=== PATIENT | male | born 1945 | race Caucasian/White ===

== ENCOUNTER 2019-11-28 20:14 | Emergency (ER) | payer MEDICARE, SELFPAY ==
[2019-11-28 20:16] VITALS: BP 194/85; PULSE 73; RESP 17; TEMP 37.4; O2SAT 99; BMI 25.0
--- NOTE | 2019-11-28 20:33 | ED_ITS ---
HPI - Eye Problem General: Chief complaint: Eye Problems Stated complaint: VISION CHANGES POST SURGERY Time Seen by Provider: 11/28/19 20:24 History of Present Illness: HPI Narrative: Mr. Andrew is a nice 74-year-old male who comes in complaining of increased hearing out of both eyes. His tearing is more so in the right side than the left side. He states he had tear duct surgery last month and the month before on the left eye and then prior to that the right eye by Dr. Tejada. The increased tearing has been going on for the past 2 to 3 days. He has not noticed any difficulty with his vision but today he had 2 episodes of bright circular flashes of light lasting just a second out of his right eye. He denies any headache, vomiting, nausea or other complaint. Associated symptoms: Denies fever(s), headache(s), nausea, neck pain or vomiting Review of Systems General: Reports: other (negative unless marked) Const: Denies: fever, chills, body aches, fatigue, malaise or diaphoresis Eyes: Reports: eye discharge, eye redness, increased production of tears and seeing flashes; Denies: blurry vision, blind spots, photophobia, eye discomfort, yellow eyes, dry eyes, floaters or decreased night vision ENMT: Denies: throat pain, painful swallowing, hoarseness, ear pain, ear discharge, Change in hearing or nasal discharge Card: Denies: chest pain, palpitations, irregular heart rhythm, syncope, pre- syncope, shortness of breath on exertion or shortness of breath when lying down Resp: Denies: shortness of breath, productive cough, non-productive cough, wheezing, coughing up blood or chest congestion GI: Denies: abdominal pain, nausea, vomiting, vomiting blood, coffee grounds in vomit, diarrhea, constipation, cramping, blood in stool or black tarry stool : Denies: flank pain, difficulty urinating, painful urination, urinary frequency, urinary urgency, decreased urine ouput, urinary incontinence or blood in urine Musc: Denies: neck pain, back pain, extremity pain, extremity swelling, joint pain, joint swelling, joint warmth or joint stiffness Skin/Breast: Denies: rash, skin tenderness or yellow skin Neuro: Denies: headache, numbness in extremities, weakness in extremities, changes in sensation, lack of coordination, difficulty walking, dizziness, vertigo or confusion Endo: Denies: excessive thirst, tired all the time, cold intolerance, excessive sweating, flushing or hot flashes Isauro/Lymph: Denies: easy bruising, easy bleeding, petechiae or enlarged lymph nodes All/Imm: Denies: hives, throat swelling, tongue swelling, facial swelling or acute wheezing PFSH ED PFSH: Medical History Diabetes mellitus Hypertension Social History (Updated 11/28/19 @ 21:18 by Marta Harris) Smoking and tobacco status: never smoked Alcohol intake: current Alcohol intake frequency: holidays/special occasions only Physical Exam Const: COMMON NORMALS: no apparent distress, oriented x3, no limitations, healthy appearing and well nourished EXAM LIMITATIONS: no altered mental status GENERAL APPEARANCE: cooperative, well kempt and well developed ORIENTATION/CONSCIOUSNESS: Yes awake HENMT: COMMON NORMALS: normocephalic, head/scalp atraumatic, hearing grossly normal bilaterally, external ears normal, EAC's normal, external nose normal and moist oral mucous membranes HEAD & SCALP: normal to inspection, normocephalic and atraumatic FACE & SINUS: normal facial exam and face symmetric NOSE: external nose normal, nares normal and other (No temporal artery nodularity or tenderness.) EXTERNAL EAR: Yes external ears normal EXTERNAL AUDITORY CANAL: EAC's normal MOUTH: oral and palatal mucosa normal and tongue normal Eye: COMMON NORMALS: EOMs intact bilaterally, no scleral icterus, no papilledema, normal visual duron by confrontation and fundi normal bilaterally GENERAL EYE: no decreased light reflex VISUAL ACUITY: Yes other (Visual ac uity 20/50 both eyes, 20/30 of left eye 20/30 out of right eye) VISUAL DURON: No peripheral vision loss, No central vision loss, No left visual field cut, No right visual field cut, No bitemporal visual field cut, No binasal vis ual field cut and No visual field cut by quadrant ALIGNMENT: Yes alignment normal PERIORBITAL: periorbital findings normal EYELID: eyelids normal CONJUNCTIVA: Yes conjunctiva abnormal positive bilateral conjunctival chemosis and conjunctival injection; without discharge, without pterygia and without subconjunctival hemorrhages SCLERA: sclerae normal CORNEA: Yes corneas normal and fluorescein used PUPIL: No dilated, No fixed, No Ronnie Mark pupil, No pupil size - right, No pupil size - left and No pinpoint EOM: No EOM abnormal, No movement deficit and No nystagmus DIRECT OPHTHALMOSCOPY: No decreased light reflex, Yes no papilledema, Yes fundi normal bilaterally, Yes anterior chamber normal, No photophobia, No macular abnormality, No optic disc abnormality, No retinal abnormality and No vascular abnormality OTHER: Eye pressures averaged 56 out of right eye and 40 out of left eye. No flouroscein uptake with exam. Ophthalmologic exam revealed no evidence of retinal detachment. Bedside ultrasound revealed no evidence of retinal detachment. Neck/C-Spine: COMMON NORMALS: full ROM, no lymphadenopathy, supple, no meningeal signs and no JVD GENERAL: Yes normal visual inspection and Yes trachea midline CERVICAL SPINE: Yes cervical ROM normal Chest: COMMONS NORMALS: inspection of chest normal and palpation of chest normal Resp: COMMON NORMALS: normal respiratory effort, no retractions, no use of accessory muscles and clear to auscultation bilaterally EFFORT & INSPECTION: Yes able to speak in complete sentences AUSCULTATION: clear to auscultation bilaterally Cardio: COMMON NORMALS: no JVD, regular rate, regular rhythm, S1 normal heart sound, S2 normal heart sound, no gallops, no clicks, no murmurs and no rub JUGULAR VENOUS DISTENTION: no JVD RATE: regular rate RHYTHM: regular rhythm HEART SOUNDS: S1 normal and S2 normal GI: COMMON NORMALS: soft to palpation, non-tender, no hepatosplenomegaly and no masses INSPECTION: Yes normal to inspection PALPATION: Yes soft and Yes no hepatosplenomegaly : COMMON NORMALS: Yes no CVA tenderness BLADDER/KIDNEY EXAM: Yes no CVA tenderness Back/Pelvis: COMMON NORMALS: no CVA tenderness, thoracic and lumbar spine normal to inspection, no thoracic nor lumbar tenderness and thoraco-lumbar ROM normal Extremity: COMMON NORMALS: normal to inspection, full ROM, normal capillary refill, no joint enlargement, no clubbing, cyanosis or edema and no calf tenderness Neuro: COMMON NORMALS: oriented x3, CN's II-XII intact bilaterally, moves all extremities, no focal motor deficits and no sensory deficits noted MENINGEAL SIGNS: Yes no meningeal signs Psych: COMMON NORMALS: mental status grossly normal, thought process normal, cooperative, affect normal, speech normal and activity/motor behavior normal APPEARANCE: Yes well kempt SPEECH: Yes normal speech THOUGHT PROCESS: normal thought process Skin: COMMON NORMALS: no rashes or lesions noted, skin turgor normal, no jaundice, no petechiae and no mottling GENERAL SKIN EXAM: no rashes or lesions noted and turgor normal Course Vital Signs: Vital signs: Vital Signs Temperature 99.3 F 11/28/19 20:16 Pulse Rate 73 11/28/19 20:16 Respiratory Rate 17 11/28/19 20:16 Blood Pressure 194/85 11/28/19 20:16 Pulse Oximetry 99 11/28/19 20:16 MDM - Eye Problem MDM Narrative: Medical decision making narrative: The case and all my findings were discussed at length with Dr. Tejada. He agrees at this time that the patient likely has no retinal detachment with a negative bedside ultrasound and he has no visual field deficits. He believes there is a 2% chance this could progress to retinal detachment and will have the patient re-seen tomorrow. In regards to his elevated pressures he did not think this was vision threatening at this time especially with the patient having no increased pain. He will see the patient in his office tomorrow at 7 AM for recheck. He states that the 10 hours or so between now and then is not a detriment and he will have better equipment to evaluate his eyes at that time. He does not want to start any new medications or eyedrops at this time. I reviewed all this with the patient and he understands the importance of following up with Dr. Tejada tomorrow and confirms to me that he has the ability to do so. He states that he will have someone drive him there as if Dr. Tejada wants to dilate his eyes he will have someone able to drive him home. He otherwise denies any headache, vomiting, fever or eye injury. I see no evidence of corneal abrasion on exam. I believe the likely cause at this time is developing glaucoma and defer to Dr. Tejada is sound judgment and he will evaluate the patient and manage further in the morning. Discharge Plan Discharge Patient Disposition: Home, Self-Care Clinical Impression: Glaucoma (increased eye pressure) Qualifiers: Glaucoma type: unspecified Laterality: bilateral Qualified Code(s): H40.9 - Unspecified glaucoma Condition: Stable Discharge Orders: Discharge Order (Routine); Ordered 04/06/20 Ordered By: Marta Harris Referrals: Junior Novak [Primary Care Provider] - Anatoly Tejada MD [Physician] - 1-3 days (Be certain to arrive between 7 [address] Tejada office as he will see you tomorrow for recheck. He states it is imperative he be there on time for him to reevaluate you.) Discharge Diet: Advance as tolerated Discharge Activity: Increase activity as tolerated Patient Instructions: Glaucoma (ED) Activity Restrictions/Additional Instructions: Please return to the ER immediately for any of the signs or symptoms listed on your discharge instruction sheets, worsening/changing of your symptoms, you are not getting better as quickly as expected, or for ANY other cause or concerns. It is imperative that you arrive at Dr. Tejada office between 7 and 8:00 tomorrow as he will not be there any later than 9 AM. He will need time to evaluate you. You need to be reevaluated for possible developing retinal detachment as well as developing glaucoma. Be certain to be there shortly after 7 AM for recheck. If for any reason you cannot be seen or cannot make that appointment return to the ER for recheck. If you have pain, vomiting or any other symptoms return to the ER in the interim. Coding Level of Care Code ED Business Intelligence Analyst for [facility]
[2019-11-28] MEDS: fluorescein 1 mg Strip EYE-BOTH (21:32)
[2019-11-28] MEDS: tetracaine 0.5% Op Soln 4 mL Btl 1 DROP EYE-BOTH (21:32)
[2019-11-28 21:33] VITALS: BP 184/88; PULSE 72; RESP 16; O2SAT 95
== END 2019-11-28 21:35 | disposition home or self-care (01) ==
PROVIDERS: Emergency Provider Emergency Medicine; Family Provider Physician Assistant Medical; PCP Physician Assistant Medical
DX: H40.9 Unspecified glaucoma (principal); E11.9 Type 2 diabetes mellitus without complications; I10 Essential (primary) hypertension
CPT/HCPCS: 12345; 99281; 99283